=== PATIENT | male | born 1965 ===

== ENCOUNTER 2016-12-27 22:29 | Emergency (ER) | payer SELFPAY ==
[2016-12-27 22:33] VITALS: O2SAT 99
--- NOTE | 2016-12-27 22:49 | ED PDOC ---
HPI: Psych/Substance Abuse Time Seen by Provider: 12/27/16 22:34 Chief Complaint (Nursing): Alcohol Ingestion Chief Complaint (Provider): etoh History Per: Patient, EMS History/Exam Limitations: intoxication Additional History Per: Patient, EMS Additional Complaint(s): 51 y/o male brought in by EMS for acute alcohol intoxication. Patient found on the ground unable to ambulate with steady gait. Patient states he drank "a lot ". HPI limited due to patient's current state. Past Medical History Reviewed: Historical Data, Nursing Documentation, Vital Signs Vital Signs: Last Vital Signs Temp 98.0 F 12/27/16 22:30 Pulse 87 12/27/16 22:30 Resp 16 12/27/16 22:30 BP 119/73 12/27/16 22:30 Pulse Ox 99 12/27/16 22:30 - Medical History PMH: No Chronic Diseases - Family History Family History: States: No Known Family Hx - Allergies Allergies/Adverse Reactions: Allergies Allergy/AdvReac Type Severity Reaction Status Date / Time No Known Allergies Allergy Verified 12/27/16 22:30 Review of Systems ROS Statement: Except As Marked, All Systems Reviewed And Found Negative Physical Exam - Reviewed Nursing Documentation Reviewed: Yes Vital Signs Reviewed: Yes - Physical Exam Appears: Positive for: Well, Non-toxic, No Acute Distress Head Exam: Positive for: ATRAUMATIC, NORMAL INSPECTION, NORMOCEPHALIC Skin: Positive for: Normal Color Eye Exam: Positive for: Normal appearance, EOMI, PERRL ENT: Positive for: Normal ENT Inspection Cardiovascular/Chest: Positive for: Regular Rate, Rhythm Respiratory: Positive for: Normal Breath Sounds Gastrointestinal/Abdominal: Positive for: Normal Exam Back: Positive for: Normal Inspection Extremity: Positive for: Normal ROM Neurologic/Psych: Positive for: Alert, Oriented (x1), Other (+aob) - Laboratory Results Result Diagrams: 12/27/16 23:01 12/27/16 23:01 - ECG O2 Sat by Pulse Oximetry: 99 - Progress ED Course And Treament: labs, ct head, urine EXAM: CT Head Without Intravenous Contrast CLINICAL HISTORY: 51 years old, male; Signs and symptoms; Altered mental status/memory loss; Other : ETOH; Additional info: ETOH, AMS TECHNIQUE: Axial computed tomography images of the head/brain without intravenous contrast. All CT scans at this facility use one or more dose reduction techniques, viz.: automated exposure control; ma/kV adjustment per patient size (including targeted exams where dose is matched to indication; i.e. head); or iterative reconstruction technique. Coronal and sagittal reformatted images were created and reviewed. COMPARISON: No relevant prior studies available. FINDINGS: Brain: No intracranial hemorrhage. No mass. No definite edema. Ventricles: No hydrocephalus. Bones/joints: No acute fracture. Soft tissues: Minimal RIGHT parietal soft tissue swelling. Sinuses: Scattered minimal to mild mucosal thickening. Mild focal mucosal thickening and/or fluid of LEFT sphenoid sinus. Mastoid air cells: No mastoid effusion. Orbits: Unremarkable as visualized. IMPRESSION: 1. No acute intracranial abnormality. 2. Sinus disease. 5:30 Patient awake, alert, oriented x3. Ambulating steady gait. Stable for discharge Disposition - Clinical Impression Clinical Impression: Alcohol intoxication - Patient ED Disposition Is Patient to be Admitted: No Counseled Patient/Family Regarding: Studies Performed, Diagnosis, Need For Followup - Disposition Disposition: Routine/Home Disposition Time: 05:30 Condition: STABLE Instructions: Alcohol Intoxication (ED)
[2016-12-27 23:04] LABS: BASO # 0.1 K/uL (0.0-0.2); EOS # 0.1 K/uL (0.0-0.7); EOS % 0.6 % (0.0-4.0); LYMPH # 2.5 K/uL (1.0-4.3); LYMPH % 27.3 % (20.0-40.0); MEAN CELL VOLUME 88.4 fl (80.0-94.0); MEAN CORPUSCULAR HEMOGLOBIN 31.9 pg (27.0-31.0); MEAN CORPUSCULAR HGB CONC 36.1 g/dL (33.0-37.0); MEAN PLATELET VOLUME 9.1 fl (7.2-11.7); MONO # 0.6 K/uL (0.0-0.8); MONO % 6.6 % (0.0-10.0); NEUT # 5.9 K/uL (1.8-7.0); NEUT % 64.5 % (50.0-75.0); RED CELL DISTRIBUTION WIDTH 13.5 % (11.5-14.5); WHITE BLOOD COUNT 9.1 K/uL (4.8-10.8)
[2016-12-27 23:24] LABS: ALB/GLOB RATIO 1.6 (1.0-2.1); ALCOHOL SERUM 280 mg/dl (0-10); ALKALINE PHOSPHATASE 63 U/L (38-126); ALT/SGPT 46 U/L (21-72); AST/SGOT 34 U/L (17-59); BILIRUBIN,TOTAL 0.5 mg/dl (0.2-1.3); BLOOD UREA NITROGEN 12 mg/dl (9-20); CALCIUM 8.8 mg/dL (8.4-10.2); CARBON DIOXIDE 21 mmol/L (22-30); CHLORIDE 106 mmol/L (98-107); GFR AFRICAN-AMERICAN > 60; GLUCOSE,RANDOM 183 mg/dL (75-110); POTASSIUM 3.8 MMOL/L (3.6-5.0); SODIUM 143 mmol/l (132-148); TOTAL PROTEIN 7.1 G/DL (6.3-8.2)
[2016-12-27 23:26] LABS: NRBC % 0.9 % (0.0-0.0)
--- NOTE | 2016-12-27 23:58 | CT ---
EXAM: CT Head Without Intravenous Contrast CLINICAL HISTORY: 51 years old, male; Signs and symptoms; Altered mental status/memory loss; Other: ETOH; Additional info: ETOH, AMS TECHNIQUE: Axial computed tomography images of the head/brain without intravenous contrast. All CT scans at this facility use one or more dose reduction techniques, viz.: automated exposure control; ma/kV adjustment per patient size (including targeted exams where dose is matched to indication; i.e. head); or iterative reconstruction technique. Coronal and sagittal reformatted images were created and reviewed. COMPARISON: No relevant prior studies available. FINDINGS: Brain: No intracranial hemorrhage. No mass. No definite edema. Ventricles: No hydrocephalus. Bones/joints: No acute fracture. Soft tissues: Minimal RIGHT parietal soft tissue swelling. Sinuses: Scattered minimal to mild mucosal thickening. Mild focal mucosal thickening and/or fluid of LEFT sphenoid sinus. Mastoid air cells: No mastoid effusion. Orbits: Unremarkable as visualized. IMPRESSION: 1. No acute intracranial abnormality. 2. Sinus disease.
[2016-12-28 05:55] VITALS: BP 122/78; PULSE 81; RESP 17; TEMP 98.2
== END 2016-12-28 05:45 | disposition home or self-care (01) ==
LOC: H.ER 22:29
DX: F10.10 Alcohol abuse, uncomplicated (principal); R41.82 Altered mental status, unspecified
CPT/HCPCS: 70450; 80053; 82948; 85025; 99284; G0480